=== PATIENT | female | born 1985 | race Caucasian/White ===

== ENCOUNTER 2017-10-21 10:45 | Emergency (ER) | payer BC, OTHER ==
[2017-10-21 12:23] VITALS: BP 138/72
--- NOTE | 2017-10-25 08:17 | ED ---
- HPI Summary HPI Summary: Patient is a [employer] [employer] [facility] [place] presenting to the ED with concern for possible blood exposure. 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 She was able to cleanse the area and discuss with her advertising traffic manager who sent her to the ED. Denies any health concerns or any complaints. - History of Current Complaint Chief Complaint: EDExposureBodyFluid Stated Complaint: FINGER STICK Time Seen by Provider: 10/21/17 11:21 Needlestick: Solid Needle Blood on Needle: Yes Depth: superificial Bleeding at Site: No Body Fluid Exposure: Blood Treatment CONVOLUTE TUBE WINDER: Cleaned Wound - Source Information HIV: Unknown Hepatitis: Unknown - Risk Factors Needlestick Risk Factor: Low Risk: Solid Needle - Other Discussed Post-Exposure prophylaxis (PEP) for HIV: Declined Discussed PEP for Hepatitis-B: Declined PMH/Surg Hx/FS Hx/Imm Hx Previously Healthy: Yes - Immunization History Hx Pertussis Vaccination: No Immunizations Up to Date: Yes Infectious Disease History: No Infectious Disease History: Denies: Traveled Outside the in Last 30 Days - Social History Occupation: Employed Full-time Lives: With Family Alcohol Use: Occasionally Hx Substance Use: No Substance Use Type: Reports: None Hx Tobacco Use: No Smoking Status (MU): Never Smoked Tobacco Review of Systems Constitutional: Negative Positive: Fatigue ENT: Negative Cardiovascular: Negative Respiratory: Negative Gastrointestinal: Negative Positive: Other - small pinpoint dot at the distal L fingertip Neurological: Negative Psychological: Normal All Other Systems Reviewed And Are Negative: Yes Physical Exam Triage Information Reviewed: Yes Vital Signs On Initial Exam: Initial Vitals Temp Pulse Resp BP Pulse Ox 98.1 F 63 16 149/96 100 10/21/17 11:04 10/21/17 11:04 10/21/17 11:04 10/21/17 11:04 10/21/17 11:04 Vital Signs Reviewed: Yes Appearance: Positive: Well-Appearing Skin: Positive: Warm - small pinpoint dot at distal left index fingertip without bleeding, Skin Color Reflects Adequate Perfusion Respiratory/Lung Sounds: Positive: Clear to Auscultation, Breath Sounds Present Cardiovascular: Positive: RRR, Pulses are Symmetrical in both Upper and Lower Extremities Musculoskeletal: Positive: Strength/ROM Intact Neurological: Positive: Sensory/Motor Intact, Alert, Oriented to Person Place, Time Psychiatric: Positive: Affect/Mood Appropriate Diagnostics - Vital Signs Vital Signs Temp Pulse Resp BP Pulse Ox 10/21/17 12:22 98 F 75 16 138/72 99 10/21/17 11:04 98.1 F 63 16 149/96 100 - Laboratory Lab Results: Lab Results 10/21/17 10/21/17 10/21/17 Range/Units 11:47 11:47 11:47 Hep Bs Antigen Nonreactive (Nonreactive) Hepatitis Be Antibody Negative (Negative) Hepatitis C Antibody Nonreactive (Nonreactive) HIV 1&2 Antibody Rapid Nonreactive (Nonreactive) Lab Statement: Any lab studies that have been ordered have been reviewed, and results considered in the medical decision making process. Needlestick Course/Dx - Course Course Of Treatment: Discussed PEP protocol. As this was a small puncture wound without bleeding present, she is at an extremely low risk for cross contamination. I have advised to not start PEP at this time. Source patient is known and patient will ask blast furnace supervisor to obtain records if that source patient consents. As per our ED protocol, will draw HIV, Hep B and C antibodies and antigens. - Diagnoses Provider Diagnoses: Needlestick injury accident Discharge - Sign-Out/Discharge Documenting (check all that apply): Patient Departure - Discharge Plan Condition: Stable Disposition: HOME Referrals: Billy Rosas NP [Nurse Practitioner] - - Billing Disposition and Condition Condition: STABLE Disposition: Home
== END 2017-10-21 12:25 | disposition home or self-care (01) ==
LOC: ED 10:45
DX: S61.231A Puncture wound without foreign body of left index finger without damage to nail, initial encounter (principal); W46.0XXA Contact with hypodermic needle, initial encounter; Y92.239 Unspecified place in hospital as the place of occurrence of the external cause
CPT/HCPCS: 36415; 86703; 86707; 86803; 87340; 99281